=== PATIENT | male | born 1960 | race Caucasian/White ===

== ENCOUNTER 2016-06-07 18:45 | Inpatient (IN) | payer BC, OTHER ==
[~2016-06-07] VITALS: Ht 175.3 cm; Wt 70.5 kg
[2016-06-07 18:50] VITALS: BP 163/101; PULSE 103; RESP 18; TEMP 98.6; O2SAT 98
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
[2016-06-07 19:33] LABS: AUTOMATED NEUTROPHIL # 12.5 TH/MM3 (1.8-7.7); BASOPHIL % 0.1 % (0.0-2.0); HEMATOCRIT 48.1 % (39.0-51.0); HEMO FLAGS DIFF FINAL; LYMPH % 2.6 % (9.0-44.0); LYMPHOCYTE # 0.3 TH/MM3 (1.0-4.8); MEAN CELL VOLUME 98.9 FL (80.0-100.0); MEAN CORPUSCULAR HEMOGLOBIN 33.9 PG (27.0-34.0); MEAN CORPUSCULAR HGB CONC 34.3 % (32.0-36.0); MONO % 5.4 % (0.0-8.0); NEUT % 91.9 % (16.0-70.0); PLATELET COUNT 144 TH/MM3 (150-450); RED BLOOD COUNT 4.86 MIL/MM3 (4.50-5.90); RED CELL DISTRIBUTION WIDTH 12.9 % (11.6-17.2); WHITE BLOOD COUNT 13.7 TH/MM3 (4.0-11.0)
[2016-06-07 19:45] LABS: APTT (PATIENT) 22.3 SEC (24.3-30.1); PROTHROMBIN TIME - PATIENT 10.8 SEC (9.8-11.6)
[2016-06-07 20:06] LABS: BICARBONATE 28.2 MEQ/L (21.0-32.0); MAGNESIUM 1.8 MG/DL (1.5-2.5); POTASSIUM 4.2 MEQ/L (3.5-5.1)
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
[2016-06-07] MEDS ORDERED: SODIUM CHLORIDE 0.9% FLUSH 5 ML FLUSH IVF PRN (20:45)
[2016-06-07] MEDS ORDERED: NALOXONE HCL 0.4 MG/ML AMP IV PRN (20:45)
[2016-06-07] MEDS ORDERED: Post-op Orders (for Pharmacy) MISC XX ONE (20:45)
[2016-06-07] MEDS ORDERED: ONDANSETRON HCL 4 MG/2 ML VIAL IV PRN (20:45)
[2016-06-07] MEDS: SODIUM CHLORIDE 0.9% FLUSH 5 ML FLUSH IVF SCH (20:57)
[2016-06-07] MEDS ORDERED: DOCUSATE SODIUM 100 MG CAP PO SCH (21:00)
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
[2016-06-07] MEDS: oxyCODONE/ACETAMINOPHEN 5 MG/325 MG TAB PO PRN (21:09)
[2016-06-07] MEDS: PANTOPRAZOLE SOD 40 MG DELAYED RELEASE TAB PO SCH (21:09)
[2016-06-07 21:29] VITALS: BP 137/88; PULSE 95; RESP 18; TEMP 97.5; O2SAT 95
[2016-06-08] VITALS (9 sets, daily range): BP systolic 110–142; BP diastolic 69–88; PULSE 67–86; RESP 16–19; TEMP 96–98; O2SAT 95–98
[2016-06-08] MEDS: METHOCARBAMOL 500 MG TAB PO SCH ×4 (01:34→21:58)
[2016-06-08] MEDS: oxyCODONE/ACETAMINOPHEN 5 MG/325 MG TAB PO PRN ×5 (01:34→20:31)
[2016-06-08 06:12] LABS: AUTOMATED NEUTROPHIL # 6.6 TH/MM3 (1.8-7.7); BASOPHIL % 0.3 % (0.0-2.0); EOSINOPHIL # 0.1 TH/MM3 (0-0.4); EOSINOPHIL % 0.7 % (0.0-4.0); HEMATOCRIT 48.3 % (39.0-51.0); HEMO FLAGS DIFF FINAL; LYMPH % 15.7 % (9.0-44.0); LYMPHOCYTE # 1.5 TH/MM3 (1.0-4.8); MEAN CELL VOLUME 99.2 FL (80.0-100.0); MEAN CORPUSCULAR HEMOGLOBIN 34.1 PG (27.0-34.0); MEAN CORPUSCULAR HGB CONC 34.4 % (32.0-36.0); MONO % 12.9 % (0.0-8.0); NEUT % 70.4 % (16.0-70.0); PLATELET COUNT 147 TH/MM3 (150-450); RED BLOOD COUNT 4.87 MIL/MM3 (4.50-5.90); RED CELL DISTRIBUTION WIDTH 12.6 % (11.6-17.2); WHITE BLOOD COUNT 9.4 TH/MM3 (4.0-11.0)
--- NOTE | 2016-06-08 06:52 | RADRPT ---
EXAM DATE/TIME: 06/08/2016 05:10 [facility] COMPARISON: CHEST SINGLE AP, June 07, 2016, 19:54. INDICATIONS : Pain left chest, evaluate pneumothorax MEDICAL HISTORY : left pneumothorax, rib fracture SURGICAL HISTORY : left chest tube ENCOUNTER: Subsequent ACUITY: 2 days PAIN SCORE: 10/10 LOCATION: Left chest FINDINGS: Single AP view of the chest. Left-sided chest tube remains in place. Subcutaneous emphysema again not ed on the left. Decrease in size of left pneumothorax. Medially it measures approximately 9 mm. Super iorly is no longer well defined. Small amount of subcutaneous emphysema. Left-sided rib fracture and clavicle fracture again noted. Linear atelectasis in the left midlung zone. CONCLUSION: Decrease in size of left pneumothorax. Chest tube remains in place. Francois Lua MD on June 08, 2016 at 6:48 Board Certified Radiologist. This report was verified electronically.
[2016-06-08 07:26] LABS: BICARBONATE 30.6 MEQ/L (21.0-32.0)
--- NOTE | 2016-06-08 09:31 | RADRPT ---
EXAM DATE/TIME: 06/08/2016 09:17 [facility] COMPARISON: No previous studies available for comparison. INDICATIONS : Left clavicle pain. [facility] MEDICAL HISTORY : None. SURGICAL HISTORY : None. ENCOUNTER: Initial ACUITY: 2 days PAIN SCORE: 10/10 LOCATION: Left Clavicle FINDINGS: Two view examination of the left clavicle demonstrates a fracture in the mid to distal left clavicle. The sternoclavicular and acromioclavicular joints are normally aligned. The distal fragment is infer iorly displaced. Bony mineralization is normal. CONCLUSION: Left clavicle fracture. Sinan Vargas MD on June 08, 2016 at 9:28 Board Certified Radiologist. This report was verified electronically.
--- NOTE | 2016-06-08 09:31 | RADRPT ---
EXAM DATE/TIME: 06/08/2016 09:15 [facility] COMPARISON: No previous studies available for comparison. INDICATIONS : Left shoulder pain. [facility] MEDICAL HISTORY : None. SURGICAL HISTORY : None. ENCOUNTER: Initial ACUITY: 2 days PAIN SCORE: 10/10 LOCATION: Left shoulder FINDINGS: Two view examination of the left shoulder demonstrates a mildly displaced fracture through the mid le ft clavicle. There is slight overriding of the fracture fragments. The left shoulder joint is otherwi se intact the acromioclavicular joint ankle humeral joint are intact. Small left apical pneumothorax is noted. Subcutaneous emphysema is seen along the lateral rib cage. A second chest tube is in place. CONCLUSION: Mildly displaced overriding fracture of the mid left clavicle. Otherwise intact left shoulder joint. Small left apical pneumothorax. Thoracostomy tube in place. Bib Leslie MD on June 08, 2016 at 9:28 Board Certified Radiologist. This report was verified electronically.
[2016-06-08] MEDS: THIAMINE HCL 100 MG TAB PO SCH (09:56)
[2016-06-08] MEDS: FOLIC ACID 1 MG TAB PO SCH (09:56)
[2016-06-08] MEDS: MULTIVITAMIN TAB PO SCH (09:56)
[2016-06-08] MEDS: DOCUSATE SODIUM 50 MG/SENNA 8.6 MG TAB PO SCH ×2 (09:57→20:31)
[2016-06-08] MEDS: LIDOCAINE HCL 5% PATCH TD SCH (09:58)
[2016-06-08] MEDS: SODIUM CHLORIDE 0.9% FLUSH 5 ML FLUSH IVF SCH ×2 (09:58→21:58)
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
--- NOTE | 2016-06-08 18:48 | HHI.PR ---
Subjective Subjective Notes Pain controlled. No complaints. Objective Vitals/I&O Vital Signs Date Time Temp Pulse Resp B/P Pulse Ox O2 Delivery O2 Flow Rate FiO2 06/08/16 12:10 97.4 76 16 130/76 95 06/08/16 09:53 Nasal Cannula 2.00 Labs Laboratory Tests Test 06/07/16 06/08/16 19:15 05:34 White Blood Count 13.7 9.4 Red Blood Count 4.86 4.87 Hemoglobin 16.5 16.6 Hematocrit 48.1 48.3 Mean Corpuscular Volume 98.9 99.2 Mean Corpuscular Hemoglobin 33.9 34.1 Mean Corpuscular Hemoglobin 34.3 34.4 Concent Red Cell Distribution Width 12.9 12.6 Platelet Count 144 147 Mean Platelet Volume 10.1 9.9 Neutrophils (%) (Auto) 91.9 70.4 Lymphocytes (%) (Auto) 2.6 15.7 Monocytes (%) (Auto) 5.4 12.9 Eosinophils (%) (Auto) 0.0 0.7 Basophils (%) (Auto) 0.1 0.3 Neutrophils # (Auto) 12.5 6.6 Lymphocytes # (Auto) 0.3 1.5 Monocytes # (Auto) 0.7 1.2 Eosinophils # (Auto) 0.0 0.1 Basophils # (Auto) 0.0 0.0 CBC Comment DIFF FINAL DIFF FINAL Differential Comment Prothrombin Time 10.8 Prothromb Time International 1.0 Ratio Activated Partial 22.3 Thromboplast Time Sodium Level 139 141 Potassium Level 4.2 5.0 Chloride Level 104 105 Carbon Dioxide Level 28.2 30.6 Anion Gap 7 5 Blood Urea Nitrogen 13 11 Creatinine 0.78 0.66 Estimat Glomerular Filtration 103 125 Rate Random Glucose 111 88 Calcium Level 8.0 8.8 Magnesium Level 1.8 Narrative Exam GENERAL: 56 year old well-nourished, well developed male lying in bed. SKIN: Warm and dry. LEFT clavicle ecchymosis. HEAD: . Normocephalic. ENT: No nasal bleeding or discharge. Mucous membranes pink and moist. NECK: Trachea midline. No JVD. CARDIOVASCULAR: Regular rate and rhythm. RESPIRATORY: No accessory muscle use. Lungs clear to auscultation. LEFT lateral CT in place secured to pleura vac. No air leak. GASTROINTESTINAL: Abdomen soft, non-tender, nondistended. + BS. MUSCULOSKELETAL: Extremities without cyanosis, or edema. LEFT arm in sling. NEUROLOGICAL: Awake and alert. Normal speech. A/P Assessment and Plan INJURIES: LEFT Clavicle fx LEFT PTX w/ CT placement LEFT rib fxs (2-4) LEFT upper lobe pulmonary lac PMHx: COPD, Tobacco abuse, ETOH abuse (3-4QD) Diet: Regular, tolerating Pulm: IS, acapella, EZpap. Encourage patient use Pain: Oxycodone. Morphine. Robaxin. Lidoderm. Pain controlled Activity: OOB. PT and OT evaluated. Ambulates halls. GI: Protonix PO Bowel: Elina-colace. MOM. DVT: SCD's Plan of care is discussed with patient at bedside. CXR in AM to evaluate for PTX. Attending Statement The exam, history, and the medical decision-making described in the above note were completed with the assistance of the mid-level provider. I reviewed and agree with the findings presented. I attest that I had a [id number] encounter with the patient on the same day, and personally performed and documented my assessment and findings in the medical record. Critical care time 40 minutes. Ricco Andersen Jun 08, 2016 18:48 Michael Wall MD Jun 11, 2016 17:40
[2016-06-08] MEDS: MAGNESIUM HYDROXIDE SUSP 30 ML CUP PO SCH (20:31)
[2016-06-08] MEDS: PANTOPRAZOLE SOD 40 MG DELAYED RELEASE TAB PO SCH (20:31)
[2016-06-08] MEDS: MORPHINE SULFATE 4 MG/ML INJ IV PRN (20:33)
[2016-06-08] MEDS: REMOVE OLD PATCH T-DERMAL SCH (20:33)
[2016-06-09] VITALS (7 sets, daily range): BP systolic 125–154; BP diastolic 66–96; PULSE 76–87; RESP 16–20; TEMP 97.6–99; O2SAT 90–96
[2016-06-09] MEDS: oxyCODONE/ACETAMINOPHEN 5 MG/325 MG TAB PO PRN ×5 (01:46→23:16)
[2016-06-09] MEDS: MORPHINE SULFATE 4 MG/ML INJ IV PRN ×2 (01:46→20:23)
[2016-06-09] MEDS: METHOCARBAMOL 500 MG TAB PO SCH ×4 (06:28→21:07)
--- NOTE | 2016-06-09 07:05 | RADRPT ---
EXAM DATE/TIME: 06/09/2016 05:28 [facility] COMPARISON: CHEST SINGLE AP, June 08, 2016, 5:10. INDICATIONS : Short of breath, evaluate left pneumothorax and chest tube, left clavicle fracture MEDICAL HISTORY : chest trauma, pneumothorax, left clavicle fracture SURGICAL HISTORY : chest tube ENCOUNTER: Subsequent ACUITY: 3 days PAIN SCORE: 7/10 LOCATION: Left chest FINDINGS: Multiple fractures are again seen. Chest tube is present on the left side. Subcutaneous emphysema is present on the left and not significantly changed. The rest of the examination has not significantly changed. CONCLUSION: No definite pneumothorax is seen for techniqueMarc Connelly MD on June 09, 2016 at 7:03 Board Certified Radiologist. This report was verified electronically.
[2016-06-09] MEDS: DOCUSATE SODIUM 50 MG/SENNA 8.6 MG TAB PO SCH ×2 (09:54→20:21)
[2016-06-09] MEDS: THIAMINE HCL 100 MG TAB PO SCH (09:54)
[2016-06-09] MEDS: SODIUM CHLORIDE 0.9% FLUSH 5 ML FLUSH IVF SCH ×2 (09:54→20:22)
[2016-06-09] MEDS: MULTIVITAMIN TAB PO SCH (09:55)
[2016-06-09] MEDS: FOLIC ACID 1 MG TAB PO SCH (09:55)
[2016-06-09] MEDS: LIDOCAINE HCL 5% PATCH TD SCH (09:56)
--- NOTE | 2016-06-09 16:44 | HHI.PR ---
Subjective Subjective Notes Reports episode of shortness of breath when chest tube was placed to waterseal today Pain controlled Objective Vitals/I&O Vital Signs Date Time Temp Pulse Resp B/P Pulse Ox O2 Delivery O2 Flow Rate FiO2 06/09/16 11:49 98.1 84 16 144/79 94 06/09/16 07:57 Nasal Cannula 21 06/08/16 19:57 2.00 Labs Laboratory Tests Test 06/07/16 06/08/16 19:15 05:34 Prothrombin Time 10.8 SEC Prothromb Time International 1.0 RATIO Ratio Activated Partial 22.3 SEC Thromboplast Time Magnesium Level 1.8 MG/DL White Blood Count 9.4 TH/MM3 Red Blood Count 4.87 MIL/MM3 Hemoglobin 16.6 GM/DL Hematocrit 48.3 % Mean Corpuscular Volume 99.2 FL Mean Corpuscular Hemoglobin 34.1 PG Mean Corpuscular Hemoglobin 34.4 % Concent Red Cell Distribution Width 12.6 % Platelet Count 147 TH/MM3 Mean Platelet Volume 9.9 FL Neutrophils (%) (Auto) 70.4 % Lymphocytes (%) (Auto) 15.7 % Monocytes (%) (Auto) 12.9 % Eosinophils (%) (Auto) 0.7 % Basophils (%) (Auto) 0.3 % Neutrophils # (Auto) 6.6 TH/MM3 Lymphocytes # (Auto) 1.5 TH/MM3 Monocytes # (Auto) 1.2 TH/MM3 Eosinophils # (Auto) 0.1 TH/MM3 Basophils # (Auto) 0.0 TH/MM3 CBC Comment DIFF FINAL Differential Comment Sodium Level 141 MEQ/L Potassium Level 5.0 MEQ/L Chloride Level 105 MEQ/L Carbon Dioxide Level 30.6 MEQ/L Anion Gap 5 MEQ/L Blood Urea Nitrogen 11 MG/DL Creatinine 0.66 MG/DL Estimat Glomerular Filtration 125 ML/MIN Rate Random Glucose 88 MG/DL Calcium Level 8.8 MG/DL Radiology Last Impressions Chest X-Ray 06/09/16 0600 Signed Impressions: Service Date/Time: Thursday, June 09, 2016 05:28 - CONCLUSION: No definite pneumothorax is seen for technique. Camron Connelly MD Shoulder X-Ray 06/08/16 0000 Signed Impressions: Service Date/Time: Wednesday, June 08, 2016 09:15 - CONCLUSION: Mildly displaced overriding fracture of the mid left clavicle. Otherwise intact left shoulder joint. Small left apical pneumothorax. Thoracostomy tube in place. Bib Leslie MD Clavicle X-Ray 06/08/16 0000 Signed Impressions: Service Date/Time: Wednesday, June 08, 2016 09:17 - CONCLUSION: Left clavicle fracture. Sinan Vargas MD Narrative Exam GENERAL: 56 year old well-nourished, well developed male lying in bed. SKIN: Warm and dry. LEFT clavicle ecchymosis. HEAD: . Normocephalic. ENT: No nasal bleeding or discharge. Mucous membranes pink and moist. NECK: Trachea midline. No JVD. CARDIOVASCULAR: Regular rate and rhythm. RESPIRATORY: No accessory muscle use. Lungs clear to auscultation. LEFT lateral CT in place secured to pleura vac. No air leak. GASTROINTESTINAL: Abdomen soft, non-tender, nondistended. + BS. MUSCULOSKELETAL: Extremities without cyanosis, or edema. LEFT arm in sling. NEUROLOGICAL: Awake and alert. Normal speech. A/P Assessment and Plan INJURIES: LEFT Clavicle fx LEFT PTX w/ CT placement LEFT rib fxs (2-4) LEFT upper lobe pulmonary lac PMHx: COPD, Tobacco abuse, ETOH abuse (3-4QD) Diet: Regular, tolerating Pulm: IS, acapella, EZpap. Encourage patient use Pain: Oxycodone. Morphine. Robaxin. Lidoderm. Pain controlled Activity: OOB. PT and OT evaluated. Ambulates halls. GI: Protonix PO Bowel: Elina-colace. MOM. DVT: SCD's Chest x-ray showed no pneumothorax today. So chest tube was placed to water seal. Shortly after patient developed shortness of breath and pain. Chest tube was placed back to suction and symptoms resolved. CXR in AM to evaluate for CT removal. Plan of care is discussed with patient at bedside. Ricco Andersen Jun 09, 2016 16:44
[2016-06-09] MEDS: PANTOPRAZOLE SOD 40 MG DELAYED RELEASE TAB PO SCH (20:21)
[2016-06-09] MEDS: MAGNESIUM HYDROXIDE SUSP 30 ML CUP PO SCH (20:21)
[2016-06-09] MEDS: REMOVE OLD PATCH T-DERMAL SCH (20:21)
[2016-06-10] VITALS (7 sets, daily range): BP systolic 122–137; BP diastolic 77–85; PULSE 77–86; RESP 18–21; TEMP 97.1–98.9; O2SAT 94–97
[2016-06-10] MEDS: MORPHINE SULFATE 4 MG/ML INJ IV PRN (03:59)
[2016-06-10] MEDS: METHOCARBAMOL 500 MG TAB PO SCH ×3 (05:50→22:35)
[2016-06-10] MEDS: oxyCODONE/ACETAMINOPHEN 5 MG/325 MG TAB PO PRN ×4 (05:50→19:53)
[2016-06-10 06:44] LABS: AUTOMATED NEUTROPHIL # 5.5 TH/MM3 (1.8-7.7); BASOPHIL % 0.5 % (0.0-2.0); EOSINOPHIL # 0.1 TH/MM3 (0-0.4); EOSINOPHIL % 0.9 % (0.0-4.0); HEMATOCRIT 48.9 % (39.0-51.0); HEMO FLAGS DIFF FINAL; LYMPH % 13.6 % (9.0-44.0); MEAN CELL VOLUME 99.1 FL (80.0-100.0); MEAN CORPUSCULAR HEMOGLOBIN 34.4 PG (27.0-34.0); MEAN CORPUSCULAR HGB CONC 34.7 % (32.0-36.0); MONO % 12.2 % (0.0-8.0); NEUT % 72.8 % (16.0-70.0); PLATELET COUNT 154 TH/MM3 (150-450); RED BLOOD COUNT 4.93 MIL/MM3 (4.50-5.90); RED CELL DISTRIBUTION WIDTH 12.3 % (11.6-17.2); WHITE BLOOD COUNT 7.5 TH/MM3 (4.0-11.0)
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
[2016-06-10 07:09] LABS: ALKALINE PHOSPHATASE 66 U/L (45-117); ALT (GPT) 18 U/L (12-78); ANION GAP 9 MEQ/L (5-15); AST (GOT) 16 U/L (15-37); BICARBONATE 31.4 MEQ/L (21.0-32.0); BLOOD UREA NITROGEN 10 MG/DL (7-18); CHLORIDE 99 MEQ/L (98-107); GLOMERULAR FILTRATION RATE 123 ML/MIN (>89); POTASSIUM 3.8 MEQ/L (3.5-5.1); SODIUM (NA) 139 MEQ/L (136-145); TOTAL BILIRUBIN ADULT 0.7 MG/DL (0.2-1.0)
[2016-06-10] MEDS: THIAMINE HCL 100 MG TAB PO SCH (10:54)
[2016-06-10] MEDS: MULTIVITAMIN TAB PO SCH (10:54)
[2016-06-10] MEDS: FOLIC ACID 1 MG TAB PO SCH (10:54)
[2016-06-10] MEDS: DOCUSATE SODIUM 50 MG/SENNA 8.6 MG TAB PO SCH ×2 (10:54→19:54)
[2016-06-10] MEDS: LIDOCAINE HCL 5% PATCH TD SCH (10:55)
[2016-06-10] MEDS: SODIUM CHLORIDE 0.9% FLUSH 5 ML FLUSH IVF SCH ×2 (10:55→19:53)
[2016-06-10] MEDS: ENOXAPARIN SODIUM 30 MG/0.3 ML SYRINGE SQ SCH (13:39)
[2016-06-10] MEDS ORDERED: LACTULOSE SYRUP 20 GM/30 ML CUP PO ONE (15:30)
--- NOTE | 2016-06-10 15:35 | HHI.PR ---
Subjective Subjective Notes OOB in chair. Denies pain. Objective Vitals/I&O Vital Signs Date Time Temp Pulse Resp B/P Pulse Ox O2 Delivery O2 Flow Rate FiO2 06/10/16 12:00 97.7 81 18 126/81 96 06/10/16 08:14 Nasal Cannula 2.00 06/09/16 19:23 21 Labs Laboratory Tests Test 06/10/16 04:48 White Blood Count 7.5 Red Blood Count 4.93 Hemoglobin 17.0 Hematocrit 48.9 Mean Corpuscular Volume 99.1 Mean Corpuscular Hemoglobin 34.4 Mean Corpuscular Hemoglobin 34.7 Concent Red Cell Distribution Width 12.3 Platelet Count 154 Mean Platelet Volume 10.4 Neutrophils (%) (Auto) 72.8 Lymphocytes (%) (Auto) 13.6 Monocytes (%) (Auto) 12.2 Eosinophils (%) (Auto) 0.9 Basophils (%) (Auto) 0.5 Neutrophils # (Auto) 5.5 Lymphocytes # (Auto) 1.0 Monocytes # (Auto) 0.9 Eosinophils # (Auto) 0.1 Basophils # (Auto) 0.0 CBC Comment DIFF FINAL Differential Comment Sodium Level 139 Potassium Level 3.8 Chloride Level 99 Carbon Dioxide Level 31.4 Anion Gap 9 Blood Urea Nitrogen 10 Creatinine 0.67 Estimat Glomerular Filtration 123 Rate Random Glucose 97 Calcium Level 8.9 Total Bilirubin 0.7 Aspartate Amino Transf 16 (AST/SGOT) Alanine Aminotransferase 18 (ALT/SGPT) Alkaline Phosphatase 66 Total Protein 7.0 Albumin 3.4 Radiology Last Impressions Chest X-Ray 06/09/16 0600 Signed Impressions: Service Date/Time: Thursday, June 09, 2016 05:28 - CONCLUSION: No definite pneumothorax is seen for technique. K. Dudley Connelly MD Shoulder X-Ray 06/08/16 0000 Signed Impressions: Service Date/Time: Wednesday, June 08, 2016 09:15 - CONCLUSION: Mildly displaced overriding fracture of the mid left clavicle. Otherwise intact left shoulder joint. Small left apical pneumothorax. Thoracostomy tube in place. Bib Leslie MD Clavicle X-Ray 06/08/16 0000 Signed Impressions: Service Date/Time: Wednesday, June 08, 2016 09:17 - CONCLUSION: Left clavicle fracture. Sinan Vargas MD Narrative Exam GENERAL: 56 year old well-nourished, well developed male lying in bed. SKIN: Warm and dry. LEFT clavicle ecchymosis. HEAD: . Normocephalic. ENT: No nasal bleeding or discharge. Mucous membranes pink and moist. NECK: Trachea midline. No JVD. CARDIOVASCULAR: Regular rate and rhythm. RESPIRATORY: No accessory muscle use. Lungs clear to auscultation. LEFT lateral CT in place secured to 40cm of suction. No air leak. GASTROINTESTINAL: Abdomen soft, non-tender, nondistended. + BS. MUSCULOSKELETAL: Extremities without cyanosis, or edema. LEFT arm in sling. NEUROLOGICAL: Awake and alert. Normal speech. A/P Assessment and Plan INJURIES: LEFT Clavicle fx LEFT PTX w/ CT placement LEFT rib fxs (2-4) LEFT upper lobe pulmonary lac PMHx: COPD, Tobacco abuse, ETOH abuse (3-4QD) Diet: Regular, tolerating Pulm: IS, acapella, EZpap. Encourage patient use Pain: Oxycodone. Morphine. Robaxin. Lidoderm. Pain controlled Activity: OOB. PT and OT evaluated. Ambulates halls. GI: Protonix PO Bowel: Elina-colace. MOM. DVT: SCD's Chest x-ray showed no pneumothorax today. Plan to place chest tube to waterseal tomorrow if a.m. CXR shows no pneumothorax. CXR in AM to evaluate for CT removal. Plan of care is discussed with patient at bedside. . seen and examined with HEALTH TECHNICAL WRITER agree with assesment and plan continue current care pt dispo planning pain control Attending Note Ricco Andersen Jun 10, 2016 15:35 Tanya Mckeon MD Jun 14, 2016 17:10
[2016-06-10] MEDS: PANTOPRAZOLE SOD 40 MG DELAYED RELEASE TAB PO SCH (19:54)
[2016-06-10] MEDS: MAGNESIUM HYDROXIDE SUSP 30 ML CUP PO SCH (19:54)
[2016-06-10] MEDS: REMOVE OLD PATCH T-DERMAL SCH (19:55)
[2016-06-11] VITALS (7 sets, daily range): BP systolic 119–142; BP diastolic 74–90; PULSE 80–88; RESP 16–21; TEMP 96.8–98.6; O2SAT 93–98
[2016-06-11] MEDS: ENOXAPARIN SODIUM 30 MG/0.3 ML SYRINGE SQ SCH ×2 (01:22→12:18)
[2016-06-11] MEDS: oxyCODONE/ACETAMINOPHEN 5 MG/325 MG TAB PO PRN ×5 (03:43→20:24)
[2016-06-11] MEDS: METHOCARBAMOL 500 MG TAB PO SCH ×3 (05:09→22:00)
--- NOTE | 2016-06-11 07:34 | RADRPT ---
EXAM DATE/TIME: 06/11/2016 06:00 [facility] COMPARISON: CHEST SINGLE AP, June 10, 2016, 6:05. INDICATIONS : Short of breath, evaluate chest tube MEDICAL HISTORY : chest tube, clavicle fracture, pneumothorax SURGICAL HISTORY : chest tube ENCOUNTER: Subsequent ACUITY: 1 week PAIN SCORE: 5/10 LOCATION: Bilateral chest FINDINGS: Chest tube is present on the left side. Multiple fractures are again seen and subcutaneous emphysema on the left side has not changed. No definite pneumothorax is seen for technique. The rest of the exa mination has not significantly changed. CONCLUSION: No appreciable change. Camron Connelly MD on June 11, 2016 at 7:31 Board Certified Radiologist. This report was verified electronically.
[2016-06-11] MEDS: DOCUSATE SODIUM 50 MG/SENNA 8.6 MG TAB PO SCH ×2 (08:19→20:25)
[2016-06-11] MEDS: LIDOCAINE HCL 5% PATCH TD SCH (08:19)
[2016-06-11] MEDS: SODIUM CHLORIDE 0.9% FLUSH 5 ML FLUSH IVF SCH ×2 (08:19→20:25)
--- NOTE | 2016-06-11 15:36 | HHI.PR ---
Subjective Subjective Notes Feeling well no complaints. Objective Vitals/I&O Vital Signs Date Time Temp Pulse Resp B/P Pulse Ox O2 Delivery O2 Flow Rate FiO2 06/11/16 15:30 93 Nasal Cannula 2.00 06/11/16 11:55 96.8 88 17 142/90 06/09/16 19:23 21 Radiology Last Impressions Chest X-Ray 06/09/16 0600 Signed Impressions: Service Date/Time: Thursday, June 09, 2016 05:28 - CONCLUSION: No definite pneumothorax is seen for technique. Camron Connelly MD Shoulder X-Ray 06/08/16 0000 Signed Impressions: Service Date/Time: Wednesday, June 08, 2016 09:15 - CONCLUSION: Mildly displaced overriding fracture of the mid left clavicle. Otherwise intact left shoulder joint. Small left apical pneumothorax. Thoracostomy tube in place. Bib Leslie MD Clavicle X-Ray 06/08/16 0000 Signed Impressions: Service Date/Time: Wednesday, June 08, 2016 09:17 - CONCLUSION: Left clavicle fracture. Sinan Vargas MD Narrative Exam GENERAL: 56 year old well-nourished, well developed male OOB in chair. SKIN: Warm and dry. LEFT clavicle ecchymosis. HEAD: . Normocephalic. ENT: No nasal bleeding or discharge. Mucous membranes pink and moist. NECK: Trachea midline. No JVD. CARDIOVASCULAR: Regular rate and rhythm. RESPIRATORY: No accessory muscle use. Lungs clear to auscultation. LEFT lateral CT in place secured to pleura vac. No air leak. GASTROINTESTINAL: Abdomen soft, non-tender, nondistended. + BS. MUSCULOSKELETAL: Extremities without cyanosis, or edema. LEFT arm in sling. NEUROLOGICAL: Awake and alert. Normal speech. A/P Assessment and Plan INJURIES: LEFT Clavicle fx LEFT PTX w/ CT placement LEFT rib fxs (2-4) LEFT upper lobe pulmonary lac PMHx: COPD, Tobacco abuse, ETOH abuse (3-4QD) Diet: Regular, tolerating Pulm: IS, acapella, EZpap. Encourage patient use Pain: Oxycodone. Morphine. Robaxin. Lidoderm. Pain controlled Activity: OOB. PT and OT evaluated. Ambulates halls. GI: Protonix PO Bowel: Elina-colace. MOM. DVT: SCD's Chest x-ray showed no pneumothorax today. Placed chest tube to waterseal today. No s/s of distress. CXR in AM. CXR in AM to evaluate for CT removal. Plan of care is discussed with patient at bedside. Ricco Andersen Jun 11, 2016 15:35
[2016-06-11] MEDS: RESP: ALBUTEROL 2.5 MG/IPRATROPIUM 0.5 MG NEB (PRN) NEB ×2 (16:34→21:53)
[2016-06-11] MEDS: RESP: ACETYLCYSTEINE 20% 30 ML NEB NEB SCH ×2 (16:34→21:53)
[2016-06-11] MEDS: PANTOPRAZOLE SOD 40 MG DELAYED RELEASE TAB PO SCH (20:25)
[2016-06-11] MEDS: MAGNESIUM HYDROXIDE SUSP 30 ML CUP PO SCH (20:25)
[2016-06-11] MEDS: REMOVE OLD PATCH T-DERMAL SCH (20:33)
[2016-06-12] VITALS (9 sets, daily range): BP systolic 117–125; BP diastolic 67–81; PULSE 69–149; RESP 16–18; TEMP 97–99.8; O2SAT 93–99
[2016-06-12] MEDS: ENOXAPARIN SODIUM 30 MG/0.3 ML SYRINGE SQ SCH ×2 (01:28→13:04)
[2016-06-12] MEDS: oxyCODONE/ACETAMINOPHEN 5 MG/325 MG TAB PO PRN ×5 (01:47→22:31)
[2016-06-12] MEDS: RESP: ACETYLCYSTEINE 20% 30 ML NEB NEB SCH ×4 (03:40→20:57)
[2016-06-12] MEDS: RESP: ALBUTEROL 2.5 MG/IPRATROPIUM 0.5 MG NEB (PRN) NEB ×4 (03:40→20:57)
[2016-06-12] MEDS: METHOCARBAMOL 500 MG TAB PO SCH ×2 (07:03→13:04)
--- NOTE | 2016-06-12 07:49 | RADRPT ---
EXAM DATE/TIME: 06/12/2016 06:33 [facility] COMPARISON: CHEST SINGLE AP, June 11, 2016, 6:00. INDICATIONS : Short of breath, evaluate pneumothorax and chest tube on left side MEDICAL HISTORY : pneumothorax, clavicle fracture SURGICAL HISTORY : chest tube ENCOUNTER: Subsequent ACUITY: 1 week PAIN SCORE: 5/10 LOCATION: Left chest FINDINGS: Chest tube in good position on the left without pneumothorax. There is subcutaneous emphysema and mu ltiple rib fractures. Clavicle fractures noted as well. The right lung is clear. The heart and pulm onary vascularity are normal. CONCLUSION: There is no pneumothorax on the left with chest tube in good position Moderate subcutaneous emphysema is present. Guy Haynes MD FACR on June 12, 2016 at 7:45 Board Certified Radiologist. This report was verified electronically.
[2016-06-12] MEDS: DOCUSATE SODIUM 50 MG/SENNA 8.6 MG TAB PO SCH ×2 (09:39→21:00)
[2016-06-12] MEDS: LIDOCAINE HCL 5% PATCH TD SCH (09:39)
[2016-06-12] MEDS: SODIUM CHLORIDE 0.9% FLUSH 5 ML FLUSH IVF SCH ×2 (09:40→21:00)
--- NOTE | 2016-06-12 19:20 | HHI.PR ---
Subjective Subjective Notes Feeling well, no complaints. Eating well. Remarks seen and examined with INFORMATION CLERK CASHIER-agree with assesment and plan Objective Vitals/I&O Vital Signs Date Time Temp Pulse Resp B/P Pulse Ox O2 Delivery O2 Flow Rate FiO2 06/12/16 16:00 97.6 109 18 122/67 95 06/12/16 09:53 Nasal Cannula 2.00 06/09/16 19:23 21 Labs Laboratory Tests Test 06/10/16 04:48 White Blood Count 7.5 TH/MM3 Red Blood Count 4.93 MIL/MM3 Hemoglobin 17.0 GM/DL Hematocrit 48.9 % Mean Corpuscular Volume 99.1 FL Mean Corpuscular Hemoglobin 34.4 PG Mean Corpuscular Hemoglobin 34.7 % Concent Red Cell Distribution Width 12.3 % Platelet Count 154 TH/MM3 Mean Platelet Volume 10.4 FL Neutrophils (%) (Auto) 72.8 % Lymphocytes (%) (Auto) 13.6 % Monocytes (%) (Auto) 12.2 % Eosinophils (%) (Auto) 0.9 % Basophils (%) (Auto) 0.5 % Neutrophils # (Auto) 5.5 TH/MM3 Lymphocytes # (Auto) 1.0 TH/MM3 Monocytes # (Auto) 0.9 TH/MM3 Eosinophils # (Auto) 0.1 TH/MM3 Basophils # (Auto) 0.0 TH/MM3 CBC Comment DIFF FINAL Differential Comment Sodium Level 139 MEQ/L Potassium Level 3.8 MEQ/L Chloride Level 99 MEQ/L Carbon Dioxide Level 31.4 MEQ/L Anion Gap 9 MEQ/L Blood Urea Nitrogen 10 MG/DL Creatinine 0.67 MG/DL Estimat Glomerular Filtration 123 ML/MIN Rate Random Glucose 97 MG/DL Calcium Level 8.9 MG/DL Total Bilirubin 0.7 MG/DL Aspartate Amino Transf 16 U/L (AST/SGOT) Alanine Aminotransferase 18 U/L (ALT/SGPT) Alkaline Phosphatase 66 U/L Total Protein 7.0 GM/DL Albumin 3.4 GM/DL Radiology Last Impressions Chest X-Ray 06/09/16 0600 Signed Impressions: Service Date/Time: Thursday, June 09, 2016 05:28 - CONCLUSION: No definite pneumothorax is seen for technique. K. Dudley Connelly MD Shoulder X-Ray 06/08/16 0000 Signed Impressions: Service Date/Time: Wednesday, June 08, 2016 09:15 - CONCLUSION: Mildly displaced overriding fracture of the mid left clavicle. Otherwise intact left shoulder joint. Small left apical pneumothorax. Thoracostomy tube in place. Bib Leslie MD Clavicle X-Ray 06/08/16 0000 Signed Impressions: Service Date/Time: Wednesday, June 08, 2016 09:17 - CONCLUSION: Left clavicle fracture. Sinan Vargas MD Narrative Exam GENERAL: 56 year old well-nourished, well developed male lying in bed. SKIN: Warm and dry. LEFT clavicle ecchymosis. HEAD: . Normocephalic. ENT: No nasal bleeding or discharge. Mucous membranes pink and moist. NECK: Trachea midline. No JVD. CARDIOVASCULAR: Regular rate and rhythm. RESPIRATORY: No accessory muscle use. Lungs clear to auscultation. LEFT lateral CT in place secured to pleura vac. No air leak. GASTROINTESTINAL: Abdomen soft, non-tender, nondistended. + BS. MUSCULOSKELETAL: Extremities without cyanosis, or edema. LEFT arm in sling. NEUROLOGICAL: Awake and alert. Normal speech. A/P Assessment and Plan INJURIES: LEFT Clavicle fx LEFT PTX w/ CT placement LEFT rib fxs (2-4) LEFT upper lobe pulmonary lac PMHx: COPD, Tobacco abuse, ETOH abuse (3-4QD) Diet: Regular, tolerating Pulm: IS, acapella, EZpap. Encourage patient use Pain: Oxycodone. Morphine. Robaxin. Lidoderm. Pain controlled Activity: OOB. PT and OT evaluated. Ambulates halls. GI: Protonix PO Bowel: Elina-colace. MOM. DVT: SCD's Chest x-ray showed no pneumothorax today. Left chest tube removed, tolerated well. Follow-up chest x-ray in a.m. Plan to discharge in a.m. if no pneumothorax is found on chest x-ray. Plan of care is discussed with patient at bedside. Ricco Andersen Jun 12, 2016 19:20 Tanya Mckeon MD Jun 23, 2016 17:16
[2016-06-12] MEDS: PANTOPRAZOLE SOD 40 MG DELAYED RELEASE TAB PO SCH (21:00)
[2016-06-12] MEDS: REMOVE OLD PATCH T-DERMAL SCH (21:00)
[2016-06-12] MEDS: MAGNESIUM HYDROXIDE SUSP 30 ML CUP PO SCH (21:00)
[2016-06-13 00:02] VITALS: BP 116/74; PULSE 87; RESP 16; TEMP 98.8; O2SAT 97
[2016-06-13] MEDS: ENOXAPARIN SODIUM 30 MG/0.3 ML SYRINGE SQ SCH ×2 (01:00→13:00)
[2016-06-13 04:00] VITALS: BP 121/81; PULSE 82; RESP 16; TEMP 98.7; O2SAT 95
[2016-06-13] MEDS: RESP: ACETYLCYSTEINE 20% 30 ML NEB NEB SCH ×2 (04:00→11:04)
[2016-06-13] MEDS: RESP: ALBUTEROL 2.5 MG/IPRATROPIUM 0.5 MG NEB (PRN) NEB ×2 (04:01→11:04)
[2016-06-13] MEDS: METHOCARBAMOL 500 MG TAB PO SCH ×3 (04:08→14:21)
[2016-06-13] MEDS: oxyCODONE/ACETAMINOPHEN 5 MG/325 MG TAB PO PRN ×3 (04:08→14:21)
--- NOTE | 2016-06-13 06:36 | RADRPT ---
EXAM DATE/TIME: 06/13/2016 05:24 [facility] COMPARISON: No previous studies available for comparison. INDICATIONS : Post chest tube removal. MEDICAL HISTORY : Pneumothorax. Clavicle fracture. SURGICAL HISTORY : Chest tube. ENCOUNTER: Subsequent ACUITY: 1 week PAIN SCORE: 5/10 LOCATION: Left chest FINDINGS: Previous left chest tube has been removed. There is a tiny left apical pneumothorax. Multiple left ch est wall fractures are present with subcutaneous air in the left chest wall as well. Left clavicle fr acture again noted. Right lung remains clear. CONCLUSION: 1. Removal of left chest tube with tiny left apical pneumothorax. Multiple left rib fractures and lef t clavicle fracture. Aidan Moseley MD on June 13, 2016 at 6:33 Board Certified Radiologist. This report was verified electronically.
[2016-06-13 07:40] VITALS: BP 122/83; PULSE 88; RESP 18; TEMP 98.8; O2SAT 91
[2016-06-13] MEDS: LIDOCAINE HCL 5% PATCH TD SCH (09:00)
[2016-06-13] MEDS: DOCUSATE SODIUM 50 MG/SENNA 8.6 MG TAB PO SCH (09:08)
[2016-06-13] MEDS: SODIUM CHLORIDE 0.9% FLUSH 5 ML FLUSH IVF SCH (09:09)
[2016-06-13 11:09] VITALS: O2SAT 92
[2016-06-13 12:00] VITALS: BP 124/76; PULSE 89; RESP 18; TEMP 99.6; O2SAT 97
[2016-06-13] MEDS ORDERED: OXYC1TAB63 PO (12:45)
[2016-06-13] MEDS ORDERED: SENN1TAB PO (12:53)
[2016-06-13] MEDS ORDERED: METH500T3 PO (12:53)
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
== END 2016-06-13 15:52 | disposition home or self-care (01) | DRG 562 ==
LOC: NEPE 18:45 → NEDA 19:35 → N06B 21:29
PROVIDERS: ADMIT Surgery; ATTEND Surgery
DX: S42.022A Displaced fracture of shaft of left clavicle, initial encounter for closed fracture (principal); S27.2XXA Traumatic hemopneumothorax, initial encounter; S27.331A Laceration of lung, unilateral, initial encounter; S22.42XA Multiple fractures of ribs, left side, initial encounter for closed fracture; J44.9 Chronic obstructive pulmonary disease, unspecified; V29.88XA Motorcycle rider (driver) (passenger) injured in other specified transport accidents, initial encounter; Y93.I9 Activity, other involving external motion; Y92.89 Other specified places as the place of occurrence of the external cause; F17.200 Nicotine dependence, unspecified, uncomplicated
CPT/HCPCS: 71010; 73000; 73030; 80048; 80053; 83735; 85025; 85610; 85730; 94150; 94640; 94664; 94667; 94668; 94762; J0690; J1650; J2270; J7608